=== PATIENT | male | born 1990 | race Caucasian/White ===

== ENCOUNTER 2016-08-10 20:50 | Emergency (ER) | payer SELFPAY ==
--- NOTE | ~2016-08-10 | ER ---
PATIENT'S NAME: EAMON [facility]ERO [facility] AGE: 26 Y [address] ROOM: [place] [address] LOCATION: [facility] ADMIT DATE: 08/10/2016 ER/Outpatient Report DISCHARGE DATE: 08/10/2016 FAMILY PHYSICIAN: PHYSICIAN, NO ATTENDING PHYSICIAN: Savita Mayorga Time of Arrival: 0 hours. Time of Evaluation: 2111 hours. IDENTIFICATION: A 26-year-old male. CHIEF COMPLAINT: Injury. HISTORY OF PRESENT ILLNESS: The patient is a 26-year-old male who on Tuesday, slipped on some ice and fell landing on his buttocks. He has low back pain. No numbness, tingling or weakness. No bowel or bladder problems. He has tried taking Tylenol and ibuprofen with no relief. ALLERGIES: NO KNOWN DRUG ALLERGIES. CURRENT MEDICATIONS: Tylenol or ibuprofen. MEDICAL PROBLEMS: Denies. PRIOR SURGERIES: No prior surgeries or hospitalizations. SOCIAL HISTORY: The patient lives in [place]. Tobacco use half pack per day. Alcohol use, denies. Drug use, denies. He also chews tobacco. REVIEW OF SYSTEMS: All systems reviewed and negative other than what is noted in the HPI. PHYSICAL EXAMINATION: VITAL SIGNS: Height 6 feet and 0 inches, weight 101.8 kg, blood pressure 144/70, pulse 88, respirations 16, temperature 97.9, and saturations 96%. GENERAL: A 26-year-old male in moderate distress, 9/10 pain. HEENT: Head: Normocephalic, atraumatic. Ears: TMs translucent both ears. PATIENT'S NAME: EAMON ROMERO [facility] AGE: 26 Y [address] ROOM: [place] [address] LOCATION: [facility] ADMIT DATE: 08/10/2016 ER/Outpatient Report DISCHARGE DATE: 08/10/2016 FAMILY PHYSICIAN: PHYSICIAN, NO ATTENDING PHYSICIAN: Savita Mayorga Nose: Mucosa pink, no lesions. Mouth: No lesions. Pharynx benign. NECK: Supple. No lymphadenopathy. LUNGS: Clear to auscultation. Breath sounds are equal. HEART: Regular rate and rhythm. No murmur, rub, or gallop. ABDOMEN: Soft, nondistended, nontender. SKIN: [place], warm, and dry. No lesions or rashes noted. NEURO: The patient is alert and oriented x4. Cranial nerves 2 through 12 grossly intact. Motor strength 5/5 throughout. Sensation is intact to light touch. Negative straight leg raise bilaterally. The patient is tender to palpation in his lumbar paraspinal muscles and midline at the mid lumbar spine. No palpable deformities. IMAGING: CT scan shows left-sided L5 pars fracture with 5 mm anterolisthesis of L5 and S1. Indeterminate 1.4 cm left hemipelvis cystic lesion. EMERGENCY ROOM COURSE: The patient was given [place] 2 tabs here in the ER with improvement of his pain from 9 to a 6. IMPRESSION: 1. Acute low back pain. 2. Incidental cyst in the left hemipelvis. PLAN: Low back pain handout. No heavy lifting. Ice as needed. Ibuprofen 600 mg t.i.d. with food. [place] 5/325 one to two p.o. q.4-6 hours p.r.n. pain, dispensed 15 with 0 refills. Valium 2 mg 1/2 to 1 tablet q.8 hours p.r.n. spasm, dispensed 10 with 0 refills. No work for 3 days and follow up at the [facility] in 2 to 3 days. Follow up sooner if any problems or concerns. I did discuss the pars fracture with Dr. Ellington. SAVITA MAYORGA MD CAR/modl /[id number] d: 08/11/16 0421 t: 08/11/16 0549, OUTPATIENT REPORT
== END 2016-08-10 22:46 | disposition disaster alternative care site (69) ==
LOC: GACC 20:50
DX: S32.059A Unspecified fracture of fifth lumbar vertebra, initial encounter for closed fracture (principal); M85.452 Solitary bone cyst, left pelvis; F17.220 Nicotine dependence, chewing tobacco, uncomplicated; F17.210 Nicotine dependence, cigarettes, uncomplicated; Z79.899 Other long term (current) drug therapy; W00.0XXA Fall on same level due to ice and snow, initial encounter